=== PATIENT | male | born 1960 | race Caucasian/White ===

== ENCOUNTER 2025-01-17 10:17 | Day surgery (SDC) | payer OTHER ==
[~2025-01-17] VITALS: Ht 188 cm; Wt 118.1 kg
[~2025-01-17 10:17] MED LIST: ERGO500029 PO; FENO145T7 PO; FURO40TA2 PO; HUMU500S2; ICOS1CAP PO; LISI40TA4 PO; METO50TA7 PO; OMEG-28 PO; ROSU40TA81 PO; SEMA1PEN2 SQ; WARF-20 PO
[2025-01-17] MEDS ORDERED: LIDOCAINE 1% MDV 20ML VIAL As Ordered ONE (10:46)
[2025-01-17] MEDS ORDERED: SODIUM BICARBONATE 8.4% INJ 50MEQ 50ML VIAL As Ordered ONE (10:46)
[2025-01-17] MEDS: SODIUM BICARBONATE 8.4% INJ 50MEQ 50ML VIAL IV ONE (11:06)
[2025-01-17] MEDS: LIDOCAINE 1% MDV 20ML VIAL IM ONE (11:06)
[2025-01-17] MEDS ORDERED: fentaNYL 100 MCG/2 ML INJECTION As Ordered ONE (11:23)
[2025-01-17] MEDS ORDERED: MIDAZOLAM INJ 2MG/2ML VIAL As Ordered ONE (11:24)
[2025-01-17] MEDS ORDERED: LIDOCAINE 2% 100MG/5ML SDV (FOR ANES.) As Ordered ONE (11:25)
[2025-01-17] MEDS: BACITRACIN OINTMENT 30GM TUBE As Ordered ONE (11:34)
[2025-01-17 11:49] LABS: INR 2.46; PARTIAL THROMBOPLASTIN TIME 34.3 SECONDS (24.8-34.2); PROTHROMBIN TIME 26.7 SECONDS (12.5-14.5)
[2025-01-17] MEDS: ceFAZolin SOD 2 GM IV ONCE IV ONE (11:56)
[2025-01-17] MEDS ORDERED: ACETAMINOPHEN 1000MG/100ML IV BAG As Ordered ONE (12:22)
[2025-01-17 12:50] VITALS: BP 118/65; TEMP 98; O2SAT 100
== END 2025-01-17 13:20 | disposition home or self-care (01) ==
LOC: M SDC 10:17
PROVIDERS: ATTEND Orthopaedic Surgery Hand Surgery
DX: S63.272A Dislocation of unspecified interphalangeal joint of right middle finger, initial encounter (principal); W23.0XXA Caught, crushed, jammed, or pinched between moving objects, initial encounter; I25.10 Atherosclerotic heart disease of native coronary artery without angina pectoris; Y93.89 Activity, other specified; Y92.9 Unspecified place or not applicable; I48.11 Longstanding persistent atrial fibrillation; I42.2 Other hypertrophic cardiomyopathy; I44.2 Atrioventricular block, complete; I10 Essential (primary) hypertension; E11.9 Type 2 diabetes mellitus without complications; E78.2 Mixed hyperlipidemia; Z79.899 Other long term (current) drug therapy; Z79.4 Long term (current) use of insulin; Z79.01 Long term (current) use of anticoagulants; Z79.85 Long-term (current) use of injectable non-insulin antidiabetic drugs; Z95.0 Presence of cardiac pacemaker; Z95.2 Presence of prosthetic heart valve; E66.09 Other obesity due to excess calories; Z90.49 Acquired absence of other specified parts of digestive tract; Z68.36 Body mass index [BMI] 36.0-36.9, adult; Z87.891 Personal history of nicotine dependence
CPT/HCPCS: 26776; 36415; 76000; 85610; 85730; J0131; J0690; J2250; J3010

== ENCOUNTER → 2025-01-28 | Outpatient (CLI) | payer OTHER | LOC: M SOG 07:49 | PROVIDERS: ATTEND Physician Assistant | DX: S63.283A Dislocation of proximal interphalangeal joint of left middle finger, initial encounter (principal); W18.30XA Fall on same level, unspecified, initial encounter; Y92.009 Unspecified place in unspecified non-institutional (private) residence as the place of occurrence of the external cause ==

== ENCOUNTER → 2025-02-14 | Outpatient (CLI) | payer OTHER | LOC: M SOG 07:36 | PROVIDERS: ATTEND Physician Assistant | DX: S63.283D Dislocation of proximal interphalangeal joint of left middle finger, subsequent encounter (principal); S62.621D Displaced fracture of middle phalanx of left index finger, subsequent encounter for fracture with routine healing ==